=== PATIENT | male | born 1960 | race African-American/Black ===

== ENCOUNTER 2025-04-09 02:26 | Emergency (ER) | payer MEDICAID, SELFPAY ==
[~2025-04-09] VITALS: Ht 188 cm; Wt 97.7 kg
[2025-04-09 02:30] VITALS: BP 145/73; PULSE 64; RESP 18; TEMP 97.7; O2SAT 97
[2025-04-09] MEDS ORDERED: BACI28.410 TP (03:38)
== END 2025-04-09 03:50 | disposition home or self-care (01) ==
LOC: EMS 02:26
DX: S51.811A Laceration without foreign body of right forearm, initial encounter (principal); W22.8XXA Striking against or struck by other objects, initial encounter; Y93.89 Activity, other specified; Y92.89 Other specified places as the place of occurrence of the external cause; Y99.8 Other external cause status
CPT/HCPCS: 99282; Z7502